=== PATIENT | male | born 1950 | race Caucasian/White ===

== ENCOUNTER → 2016-06-10 | Outpatient (CLI) | payer BC ==
--- NOTE | 2016-06-10 16:47 | DX ---
Chest, PA and Lateral History: Upper respiratory tract infection, cough, personal history of TB, J06.9, R05, Z86.11 Comparison: February 05, 2015 Findings: Mild perihilar and peripheral bronchial wall thickening is present consistent with chronic or recurrent airways disease. There is no focal infiltrate or consolidation. Heart size and pulmonar y vascularity are normal. There is no adenopathy or mass lesion. There is no pleural effusion . Bones are unremarkable for age. Impression: Chronic or recurrent airways disease. No pneumonia.
== END ==
LOC: FIMAGING 13:29
PROVIDERS: ATTEND Family Medicine
DX: J45.909 Unspecified asthma, uncomplicated (principal); J06.9 Acute upper respiratory infection, unspecified; Z86.11 Personal history of tuberculosis

== ENCOUNTER → 2017-06-02 | Outpatient (CLI) | payer BC | LOC: FIMAGING 16:49 | PROVIDERS: ATTEND Physician Assistant | DX: R91.1 Solitary pulmonary nodule (principal); J98.09 Other diseases of bronchus, not elsewhere classified ==

== ENCOUNTER → 2017-06-04 | Outpatient (CLI) | payer BC ==
[~2017-06-04] MED LIST: IOPAMIDOL (ISOVUE-300) 100 ML BTL ONE
== END ==
LOC: FIMAGING 11:50
PROVIDERS: ATTEND Physician Assistant
DX: K57.32 Diverticulitis of large intestine without perforation or abscess without bleeding (principal); K59.01 Slow transit constipation; R16.0 Hepatomegaly, not elsewhere classified; N28.1 Cyst of kidney, acquired
CPT/HCPCS: Q9967

== ENCOUNTER → 2017-10-11 | Outpatient (CLI) | payer BC | LOC: FIMAGING 09:56 | PROVIDERS: ATTEND Physician Assistant | DX: R91.1 Solitary pulmonary nodule (principal); Z86.11 Personal history of tuberculosis ==

== ENCOUNTER → 2017-10-19 | Outpatient (CLI) | payer BC | LOC: FIMAGING 12:09 | PROVIDERS: ATTEND Physician Assistant | DX: M12.812 Other specific arthropathies, not elsewhere classified, left shoulder (principal); S43.432A Superior glenoid labrum lesion of left shoulder, initial encounter ==